=== PATIENT | female | born 1970 | race Two or more races ===

== ENCOUNTER 2024-05-04 18:17 | Emergency (ER) | payer BC ==
[~2024-05-04] VITALS: Ht 165.1 cm; Wt 72.6 kg
[2024-05-04 20:29] LABS: HEMOGLOBIN 13.7 g/dL (12.0-15.00); MEAN CELL VOLUME 86.9 fL (80.00-100.00); MEAN CORPUSCULAR HEMOGLOBIN 29.7 pg (27.00-32.0); MEAN CORPUSCULAR HGB CONC 34.2 g/dl (32.0-36.0); PLATELET COUNT 231 K/uL (150-450); RED BLOOD COUNT 4.61 M/uL (4.00-6.00); RED CELL DISTRIBUTION WIDTH 12.9 % (11.5-14.5)
[2024-05-04 20:45] LABS: CALCIUM 9.7 mg/dL (8.5-10.1); CREATININE SERUM 0.67 mg/dL (0.55-1.02); GFR 92.79; POTASSIUM 3.94 mEq/L (3.5-5.1)
[2024-05-04] MEDS ORDERED: KETOROLAC TROMETHAMINE 60 MG VIAL IM ONE ×2 (21:11→21:15)
[2024-05-04] MEDS ORDERED: ORPHENADRINE CITRATE 30 MG/ML AMPUL ONE (21:11)
[2024-05-04] MEDS ORDERED: BACLOFEN5 MG PO (21:12)
[2024-05-04] MEDS ORDERED: VOLTAREN ARTHRI20 GM TOP (21:12)
[2024-05-04] MEDS ORDERED: ORPHENADRINE CITRATE 30 MG/ML AMPUL IM ONE (21:15)
== END 2024-05-04 21:41 | disposition home or self-care (01) ==
LOC: ER 18:18
PROVIDERS: General Practice
DX: M79.602 Pain in left arm (principal); R07.9 Chest pain, unspecified; M19.90 Unspecified osteoarthritis, unspecified site